=== PATIENT | male | born 1965 | race Caucasian/White ===

== ENCOUNTER 2023-11-17 11:24 | Inpatient (IN) ==
[2023-11-17] MEDS ORDERED: XYLOCAINE 2 % (PLAIN) ONE (14:28)
[2023-11-17] MEDS ORDERED: KETAMINE HCL ONE (14:28)
[2023-11-17] MEDS ORDERED: VENTOLIN or PROAIR HFA IN SCH (15:15)
[2023-11-17] MEDS: LR 1,000 ML IV 1,000 ML IV SCH (15:44)
[2023-11-17] MEDS: LOVENOX INJ 80 MG SYR SC SCH (15:44)
[2023-11-17 15:47] LABS: BASOPHILS # (AUTO) 0.1 X10^3/uL (0.0-0.1); EOSINOPHILS # (AUTO) 0.1 x10^3/uL (0.0-0.2); EOSINOPHILS % (AUTO) 1.5 % (0.9-2.9); HEMATOCRIT 41.1 % (42.0-54.0); HEMOGLOBIN 13.7 g/dL (13.5-18.0); LYMPHOCYTES # (AUTO) 4.7 X10^3/uL (1.3-2.9); LYMPHOCYTES % (AUTO) 48.1 % (21.0-51.0); MEAN CORPUSCULAR HEMOGLOBIN 31.5 pg (27.0-34.0); MEAN CORPUSCULAR HGB CONC 33.3 g/dL (33.0-35.0); MEAN CORPUSCULAR VOLUME 94.4 fL (80.0-100.0); MEAN PLATELET VOLUME 8.2 fL (7.4-11.0); MONOCYTES # (AUTO) 0.8 x10^3/uL (0.3-0.8); MONOCYTES % (AUTO) 8.4 % (0.0-13.0); PLATELET COUNT 267 X10^3/uL (150.0-450.0); RED BLOOD COUNT 4.35 X10^6/uL (4.7-6.0); RED CELL DISTRIBUTION WIDTH 14.2 % (11.6-16.5); WHITE BLOOD COUNT 9.7 X10^3/uL (3.6-10.0)
[2023-11-17] MEDS: CATAPRES TAB 0.1 MG PO ONE (17:02)
[2023-11-17 17:03] LABS: ALANINE AMINOTRANSFERASE 49 Units/L (12-78); ALBUMIN 3.7 g/dL (3.4-5.0); ALKALINE PHOSPHATASE 181 Units/L (46-116); ASPARTATE AMINO TRANSFERASE 29 Units/L (15-37); BLOOD UREA NITROGEN 12 mg/dL (7-18); CALCIUM 8.3 mg/dL (8.5-10.1); CARBON DIOXIDE 33.4 mmol/L (21-32); CHLORIDE 102 mmol/L (98-107); CREATININE 0.78 mg/dL (0.70-1.30); GLUCOSE 101 mg/dL (65-99); POTASSIUM 4.3 mmol/L (3.5-5.1); SODIUM 141 mmol/L (136-145); TOTAL PROTEIN 6.9 g/dL (6.4-8.2); eGFR NON BLACK RACES > 60 (>60)
--- NOTE | 2023-11-17 18:34 | DR.H&P ---
H&P History & Physical for Day of: H&P Date: 11/17/23 Chief Complaint Chief Complaint: Bilateral Lower extremity rest pain History of Present Illness History of Present Illness: This is a 58 year old male referred from Dr. Dubon for bilateral lower extremity rest pain with ankle brachial indices of 0.3 on the right and 0.5 on the left. He had cataract surgery earlier today in [place], [place] and was admitted here for further evaluation and treatment of his severe lower extremity ischemia . he says that the right leg hurts the worst. There is no tissue loss. He has a significant tobacco abuse history with over 1 pack per day. He has had recent cardiac catheterization showing no significant coronary artery stenosis. He does have COPD and hypertension.History of seizures . Past Medical History Past Medical History: COPD, Dyslipidemia, GERD, Hypertension and Seizures Past Surgical History Surgical History: Abdominal Surgery, Angioplasty/Stents and Tonsillectomy Family History Family Medical History: Hypertension Social History Does patient currently use any type of tobacco product: Yes Type of Tobacco Use: Cigarettes Alcohol Use: None Drug Use: None Medications Home Medications: Home Medications Medication Instructions Recorded Confirmed Type amlodipine 10 mg tablet 10 mg PO QDAY 06/28/23 11/17/23 History esomeprazole magnesium 40 mg 40 mg PO QDAY 06/28/23 11/17/23 History capsule,delayed release hydrocodone 5 mg-acetaminophen 325 1 tab PO Q8H PRN 06/28/23 11/17/23 History mg tablet lisinopril 40 mg tablet 40 mg PO QDAY 06/28/23 11/17/23 History metoprolol tartrate 100 mg tablet 100 mg PO BID 06/28/23 11/17/23 History phenytoin sodium extended 100 mg 200 mg PO BID 06/28/23 11/17/23 History capsule pregabalin 150 mg capsule 150 mg PO BID 06/28/23 11/17/23 History simvastatin 10 mg tablet 10 mg PO HS 06/28/23 11/17/23 History albuterol sulfate 90 mcg/actuation 2 puff inhalation Q6H PRN wheezing 10/24/23 11/17/23 History aerosol inhaler amlodipine 5 mg tablet 5 mg PO DAILY 10/24/23 11/17/23 History fluticasone fur. 100 mcg-umeclid 1 ea inhalation QDAY 10/24/23 11/17/23 History 62.5 mcg-vilant 25 mcg inhalat.powder (Trelegy Ellipta) levalbuterol HCl 1.25 mg/3 mL 1.25 mg inhalation TID 10/24/23 11/17/23 History solution for nebulization trazodone 50 mg tablet 50 mg PO QPM PRN 10/24/23 11/17/23 History Allergies Allergies Allergy/AdvReac Type Severity Reaction Status Date / Time codeine AdvReac Verified 10/24/23 09:53 Penicillins AdvReac Verified 10/24/23 09:53 Labs 11/17/23 15:30 11/17/23 16:35 Labs: Laboratory WBC 9.7 X10^3/uL (3.6-10.0) 11/17/23 15:30 RBC 4.35 X10^6/uL (4.7-6.0) L 11/17/23 15:30 Hgb 13.7 g/dL (13.5-18.0) 11/17/23 15:30 Hct 41.1 % (42.0-54.0) L 11/17/23 15:30 MCV 94.4 fL (80.0-100.0) 11/17/23 15:30 MCH 31.5 pg (27.0-34.0) 11/17/23 15:30 MCHC 33.3 g/dL (33.0-35.0) 11/17/23 15:30 RDW 14.2 % (11.6-16.5) 11/17/23 15:30 Plt Count 267 X10^3/uL (150.0-450.0) 11/17/23 15:30 MPV 8.2 fL (7.4-11.0) 11/17/23 15:30 Neut % (Auto) 41.0 % (42.0-75.0) L 11/17/23 15:30 Lymph % (Auto) 48.1 % (21.0-51.0) 11/17/23 15:30 Young % (Auto) 8.4 % (0.0-13.0) 11/17/23 15:30 Eos % (Auto) 1.5 % (0.9-2.9) 11/17/23 15:30 Baso % (Auto) 1.0 % (0.2-1.0) 11/17/23 15:30 Neut # (Auto) 4.0 x10^3/uL (2.2-4.8) 11/17/23 15:30 Lymph # (Auto) 4.7 X10^3/uL (1.3-2.9) H 11/17/23 15:30 Young # (Auto) 0.8 x10^3/uL (0.3-0.8) 11/17/23 15:30 Eos # (Auto) 0.1 x10^3/uL (0.0-0.2) 11/17/23 15:30 Baso # (Auto) 0.1 X10^3/uL (0.0-0.1) 11/17/23 15:30 Absolute Nucleated RBC 0.0 /100WBC 11/17/23 15:30 Sodium 141 mmol/L (136-145) 11/17/23 16:35 Corrected Sodium TNP 11/17/23 16:35 Potassium 4.3 mmol/L (3.5-5.1) 11/17/23 16:35 Chloride 102 mmol/L (98-107) 11/17/23 16:35 Carbon Dioxide 33.4 mmol/L (21-32) H 11/17/23 16:35 BUN 12 mg/dL (7-18) 11/17/23 16:35 Creatinine 0.78 mg/dL (0.70-1.30) 11/17/23 16:35 Est GFR (MDRD) Af Amer > 60 (>60) 11/17/23 16:35 Est GFR (MDRD) Non-Af > 60 (>60) 11/17/23 16:35 Glucose 101 mg/dL (65-99) H 11/17/23 16:35 Calcium 8.3 mg/dL (8.5-10.1) L 11/17/23 16:35 Corrected Calcium TNP 11/17/23 16:35 Total Bilirubin 0.20 mg/dL (0.2-1.0) 11/17/23 16:35 AST 29 Units/L (15-37) 11/17/23 16:35 ALT 49 Units/L (12-78) 11/17/23 16:35 Alkaline Phosphatase 181 Units/L (46-116) H 11/17/23 16:35 Total Protein 6.9 g/dL (6.4-8.2) 11/17/23 16:35 Albumin 3.7 g/dL (3.4-5.0) 11/17/23 16:35 Globulin 3.2 g/dL (2.5-4.5) 11/17/23 16:35 Albumin/Globulin Ratio 1.2 Ratio (1.1-2.1) 11/17/23 16:35 Review of Systems Constitutional: See HPI Eyes: No Symptoms Reported ENT: No Symptoms Reported Respiratory: No Symptoms Reported Cardiovascular: Other (complaints of significant shortness of breath although this is most likely from COPD. he gives history of recent cardiac catheterization which showed no significant coronary artery stenosis ) Gastrointestinal: No Symptoms Reported Musculoskeletal: No Symptoms Reported Skin: No Symptoms Reported Neurological: No Symptoms Reported Physical Exam Vital Signs: Vital Signs Temperature 98.3 F Pulse Rate [Left Brachial] 60 Respiratory Rate 24 Blood Pressure [Left Arm] 190/91 Blood Pressure [Left Arm] 179/85 Blood Pressure [Left Arm] 184/78 O2 Sat by Pulse Oximetry 94 Oriented: Normal Eyes: Normal Ear: Normal Nose: Normal Throat: Normal Respiratory: Clear Throughout Cardiovascular: Normal and Other (palpable femoral pulses bilaterally, cool feet bilaterally with no palpable distal pulses either ankle. no tissue loss noted ) : Normal Auscultation: Bowel Sounds: Normal Palpation: Normal Tenderness: Normal Skin: Normal Musculoskeletal: Normal Psychiatric: Normal Mood Description: Calm Affect: Normal Speech Pattern: Clear and Appropriate Assessment/Plan (1) Atherosclerosis of [place] arteries of extremities with rest pain, right leg: Status: Acute Plan: admit, therapeutic Lovenox, obtain lab work and CT and of the aorta with bilateral runoff. (2) Atherosclerosis of [place] arteries of extremities with rest pain, left leg: Status: Acute Plan: As above (3) Tobacco abuse: Status: Acute Plan: nicotine patch (4) Seizures: Status: Acute Plan: continue his Dilantin (5) Hyperlipidemia: Status: Acute Plan: home medications Review H&P Reviewed: Yes Patient was examined?: Yes
[2023-11-17] MEDS: XOPENEX 1.25 MG/3 ML NEBULE NEB SCH (20:13)
[2023-11-17] MEDS: LYRICA CAP 150 mg PO SCH (20:59)
--- NOTE | 2023-11-17 20:59 | CT ---
EXAM: CTA AORTA WITH RUNOFF HISTORY: Bilateral lower extremity CRITICAL ISCHEMIA; COMPARISON: None available TECHNIQUE: CT angiography of the abdominal aorta with bilateral lower extremity runoff with intravenous contrast . Three-dimensional reconstructions and/or MIPS images were performed and reviewed. FINDINGS: CTA aorta: The lung bases are clear. No liver mass. Normal adrenal glands. The kidneys enhance nor gloria. The ureters taper normally. Spleen is normal in contour. Noninflamed pancreas. Normal stom ach. The bowel is nonobstructed. Colon diverticulosis. No sign of appendicitis. No pelvic free fluid. No free air. No suspicious adenopathy. The abdominal aorta tapers normally with advanced multifocal atherosclerotic plaque. Celiac and supe rior mesenteric arteries are patent. Renal arteries are patent. The BRIAN is patent. There is advanced multifocal plaque in the bilateral common iliac arteries as well as the bilateral i nternal and external iliac arteries. The left internal iliac artery is occluded. There is flow in t he bilateral common femoral arteries. CTA bilateral lower extremity runoff: The right superficial femoral artery is patent with multifocal advanced atherosclerotic plaque resulting in multifocal moderate to severe stenosis along the length of the vessel. The popliteal artery is patent. There is flow in the right anterior tibial branch an d right dorsalis pedis. There is flow in the right posterior tibial and peroneal branches which is w eak. Flow is no longer visible in the right posterior tibial artery at the level of the distal tibia just above the ankle. The left superficial femoral artery is occluded along its length. There is reconstitution torsion of flow at the popliteal artery due to profunda branch collaterals. The popliteal artery demonstrates weak flow into the calf trifurcation. Only trickle flow is visible in the left calf trifurcation to the level of the ankle. Trickle flow is visible in the left dorsalis pedis and posterior tibial kenny cornelio at the foot. IMPRESSION: CTA aorta: The left internal iliac artery is occluded. CTA bilateral lower extremity runoff: The left superficial femoral artery is occluded along its length with reconstitution of flow at the l evel of the popliteal artery with week flow into the left calf trifurcation to the ankle. Extensive multifocal moderate to severe atherosclerotic disease involving the entirety of the right S FA. The right posterior tibial artery demonstrates no flow from just above the ankle. Dose reduction techniques including automated exposure control (AEC) and adjustment of mA and kv were utilized. THIS IS AN ELECTRONICALLY VERIFIED FINAL REPORT 11/17/2023 8:55 PM - Electronically signed by Charles Smith MD
[2023-11-17] MEDS: DILANTIN CAP 100 MG EXT REL PO SCH (21:00)
[2023-11-17] MEDS: DESYREL PO SCH (21:00)
[2023-11-17] MEDS: LOPRESSOR TAB 50 MG PO SCH (21:00)
[2023-11-17] MEDS: ZOCOR TAB 10 MG PO SCH (21:00)
[2023-11-18] MEDS: PERCOCET TAB 5/325 MG PO PRN (04:45)
[2023-11-18] MEDS: NORVASC TAB 10 MG PO SCH (09:10)
[2023-11-18] MEDS: PROTONIX TAB 40 MG PO SCH (09:10)
[2023-11-18] MEDS: ZESTRIL TAB 40 MG PO SCH (09:10)
[2023-11-18] MEDS: NICOTINE PATCH TD SCH (09:11)
[2023-11-18] MEDS: CHECK PATCH XX SCH (09:11)
[2023-11-18] MEDS: OMNIPAQUE 350 mg/mL 50 mL BTL 50 ML ONE (09:32)
[2023-11-18] MEDS: OMNIPAQUE 350 mg/mL 100 mL BTL 100 ML ONE (09:32)
[2023-11-18] MEDS: NS 500 ML IV 500 ML IV ONE (09:32)
--- NOTE | 2023-11-18 13:39 | NOTE.SOAP ---
Soap Note Note for Day of Date of Exam: 11/18/23 Subjective Data Subjective Data: HD # 1 after admission for severe b/l LE rest pain. Histroy of COPD. Has had recent cardiac cath which the patient describes as showing no significant disease. Long and significant tobacco abuse history and has diagnosis of COPD. Had CTA perdformed yesterday. Objective Data Temperature: 97.4 F Pulse Rate: 18 Respiratory Rate: 18 Blood Pressure: 160/69 O2 Sat by Pulse Oximetry: 97 Objective Data: Both feet cool, CTA shows long segrment occlusion of the left SFA with diffuse runoff disease, multifocal and severe disease of the right SFA also with diffuse runoff disease. Assessment Assessment: Severe limb threatening ischemia both legs, history of recent cardia catherization Plan Plan: Therapuetic Lovenox, obtain records of recent cardiac catherization. Plan arterial intervention of legs next week.
[2023-11-19] MEDS: CHLORTHALIDONE PO SCH (09:31)
--- NOTE | 2023-11-19 12:51 | RAD ---
EXAM: CHEST, 1 VIEW HISTORY: cough; COMPARISON: None available. FINDINGS: The trachea is midline. The cardiac silhouette is unremarkable. Chronic interstitial lung changes a re observed without focal infiltrate or effusion.. The bony thorax is unremarkable. IMPRESSION: No acute cardiopulmonary disease. THIS IS AN ELECTRONICALLY VERIFIED FINAL REPORT 11/19/2023 12:48 PM - Electronically signed by Chuck Atkinson MD
[2023-11-19] MEDS: MILK OF MAGNESIA PO SCH (13:38)
[2023-11-19] MEDS: CATAPRES TAB 0.1 MG PO ONE (13:38)
--- NOTE | 2023-11-19 15:59 | NOTE.SOAP ---
Soap Note Note for Day of Date of Exam: 11/19/23 Subjective Data Subjective Data: Still with b/l LE rest Pain of LE , no tissue loss. Reported to be hypertensive Objective Data Temperature: 97.1 F Pulse Rate: 63 Respiratory Rate: 22 Blood Pressure: 216/90 O2 Sat by Pulse Oximetry: 98 Objective Data: No change is PE . Assessment Assessment: Critical b/lLE ischemia , hypertension, COPD Plan Plan: Continue LOvenox , internal medicine consult to bettercontrol COPD and hypertenison. Initial list of home medications not complete and now started on all antihypertensives.
[2023-11-19] MEDS: APRESOLINE INJ 20 MG VIAL IVP ONE (16:42)
[2023-11-19] MEDS: VISTARIL PO PRN (18:33)
[2023-11-20 06:35] LABS: BASOPHILS # (AUTO) 0.1 X10^3/uL (0.0-0.1); BASOPHILS % (AUTO) 1.2 % (0.2-1.0); EOSINOPHILS # (AUTO) 0.3 x10^3/uL (0.0-0.2); EOSINOPHILS % (AUTO) 3.5 % (0.9-2.9); HEMATOCRIT 38.1 % (42.0-54.0); HEMOGLOBIN 12.7 g/dL (13.5-18.0); LYMPHOCYTES # (AUTO) 3.8 X10^3/uL (1.3-2.9); LYMPHOCYTES % (AUTO) 42.8 % (21.0-51.0); MEAN CORPUSCULAR HEMOGLOBIN 31.5 pg (27.0-34.0); MEAN CORPUSCULAR HGB CONC 33.4 g/dL (33.0-35.0); MEAN PLATELET VOLUME 8.5 fL (7.4-11.0); MONOCYTES # (AUTO) 0.9 x10^3/uL (0.3-0.8); MONOCYTES % (AUTO) 9.8 % (0.0-13.0); NEUTROPHILS # (AUTO) 3.8 x10^3/uL (2.2-4.8); NEUTROPHILS % (AUTO) 42.7 % (42.0-75.0); PLATELET COUNT 236 X10^3/uL (150.0-450.0); RED BLOOD COUNT 4.05 X10^6/uL (4.7-6.0); RED CELL DISTRIBUTION WIDTH 14.1 % (11.6-16.5); WHITE BLOOD COUNT 8.9 X10^3/uL (3.6-10.0)
[2023-11-20 06:54] LABS: ALANINE AMINOTRANSFERASE 40 Units/L (12-78); ALBUMIN 3.4 g/dL (3.4-5.0); ALKALINE PHOSPHATASE 149 Units/L (46-116); ASPARTATE AMINO TRANSFERASE 21 Units/L (15-37); BLOOD UREA NITROGEN 12 mg/dL (7-18); CALCIUM 8.7 mg/dL (8.5-10.1); CARBON DIOXIDE 31.5 mmol/L (21-32); CHLORIDE 102 mmol/L (98-107); CREATININE 0.78 mg/dL (0.70-1.30); GLUCOSE 107 mg/dL (65-99); POTASSIUM 3.4 mmol/L (3.5-5.1); SODIUM 140 mmol/L (136-145); TOTAL PROTEIN 6.4 g/dL (6.4-8.2); eGFR NON BLACK RACES > 60 (>60)
--- NOTE | 2023-11-20 06:57 | RAD ---
EXAM:KUBHISTORY:PainCOMPARISON: .br.br.br.br nonobstructive. There is no definite mass, visceral enlargement, ascites or abnormal calcification.IMPRESSION:No acute or significant findings.THIS IS AN ELECTRONICALLY VERIFIED FINAL REPORT11/20/2023 6:54 AM - Electronically signed by Dale Sargent MD
[2023-11-20] MEDS ORDERED: CONSULT PHARMACY - POTASSIUM & MAGNESIUM XX SCH (14:00)
[2023-11-20] MEDS: LR 1,000 ML IV 1,000 ML IV SCH (14:05)
[2023-11-20] MEDS: K-DUR TAB 20 MEQ PO SCH (14:41)
[2023-11-20] MEDS: MAG-OX TAB PO SCH (15:07)
--- NOTE | 2023-11-20 23:59 | NOTE.SOAP ---
Soap Note Note for Day of Date of Exam: 11/20/23 Subjective Data Subjective Data: Persistent rest pain both legs . BP under better control Still awaiting documentation of last cardiac catherization . CTA showed significant SFA disease, Right pain hurts the worse. COPD improved Objective Data Temperature: 98.3 F Pulse Rate: 90 Respiratory Rate: 16 Blood Pressure: 178/76 O2 Sat by Pulse Oximetry: 96 Objective Data: feet cool .no tissue loss, lungs are clear Assessment Assessment: B/L critical ischemia of LE Plan Plan: Plan arterial intervention 11/22/2023
[2023-11-21] MEDS: APRESOLINE TAB 10 MG PO SCH (18:33)
--- NOTE | 2023-11-21 23:51 | NOTE.SOAP ---
Soap Note Note for Day of Date of Exam: 11/21/23 Subjective Data Subjective Data: Rest pain both legs, right hurts the worst. Objective Data Pulse Rate: 70 O2 Sat by Pulse Oximetry: 95 Objective Data: Cool LE b/l. Assessment Assessment: critical ischema b/l Plan Plan: to OR in AM , revascularization right leg
[2023-11-22] MEDS: HIBICLENS WASH EXT ONE (04:58)
[2023-11-22 05:04] LABS: BASOPHILS # (AUTO) 0.1 X10^3/uL (0.0-0.1); BASOPHILS % (AUTO) 0.9 % (0.2-1.0); EOSINOPHILS # (AUTO) 0.3 x10^3/uL (0.0-0.2); EOSINOPHILS % (AUTO) 3.5 % (0.9-2.9); HEMATOCRIT 38.8 % (42.0-54.0); LYMPHOCYTES # (AUTO) 3.5 X10^3/uL (1.3-2.9); LYMPHOCYTES % (AUTO) 45.4 % (21.0-51.0); MEAN CORPUSCULAR HEMOGLOBIN 31.6 pg (27.0-34.0); MEAN CORPUSCULAR HGB CONC 33.5 g/dL (33.0-35.0); MEAN CORPUSCULAR VOLUME 94.3 fL (80.0-100.0); MONOCYTES # (AUTO) 0.7 x10^3/uL (0.3-0.8); MONOCYTES % (AUTO) 9.4 % (0.0-13.0); NEUTROPHILS # (AUTO) 3.2 x10^3/uL (2.2-4.8); NEUTROPHILS % (AUTO) 40.8 % (42.0-75.0); PLATELET COUNT 255 X10^3/uL (150.0-450.0); RED BLOOD COUNT 4.12 X10^6/uL (4.7-6.0); RED CELL DISTRIBUTION WIDTH 13.7 % (11.6-16.5); WHITE BLOOD COUNT 7.8 X10^3/uL (3.6-10.0)
[2023-11-22 05:16] LABS: ALANINE AMINOTRANSFERASE 70 Units/L (12-78); ALBUMIN 3.3 g/dL (3.4-5.0); ALKALINE PHOSPHATASE 161 Units/L (46-116); ASPARTATE AMINO TRANSFERASE 43 Units/L (15-37); BLOOD UREA NITROGEN 13 mg/dL (7-18); CALCIUM 8.8 mg/dL (8.5-10.1); CHLORIDE 101 mmol/L (98-107); COR CA(FOR HYPOALB) 9.4 mg/dL (8.5-10.1); CREATININE 0.81 mg/dL (0.70-1.30); GLUCOSE 95 mg/dL (65-99); MAGNESIUM 1.8 mg/dL (2.0-2.9); POTASSIUM 3.9 mmol/L (3.5-5.1); SODIUM 138 mmol/L (136-145); TOTAL PROTEIN 6.6 g/dL (6.4-8.2); eGFR NON BLACK RACES > 60 (>60)
[2023-11-22] MEDS ORDERED: XYLOCAINE 2 % (PLAIN) ONE (07:00)
[2023-11-22] MEDS ORDERED: KETAMINE HCL ONE (07:00)
[2023-11-22] MEDS ORDERED: CONSULT PHARMACY - POTASSIUM & MAGNESIUM XX SCH (09:00)
[2023-11-22] MEDS: MAGNESIUM SULFATE 1 GRAM/100 mL PREMIX 1 G/100 ML BAG IV SCH (10:24)
[2023-11-22] MEDS: LR 1,000 ML IV 1,000 ML IV ONE (11:32)
[2023-11-22] MEDS: DUONEB 0.5 MG/3 MG (3 mL) NEB ONE (11:47)
[2023-11-22] MEDS: ANCEF VIAL 1 GRAM ONE (12:02)
[2023-11-22] MEDS: NS 100 ML IV 100 ML ONE (12:02)
[2023-11-22] MEDS: VERSED ONE (12:10)
[2023-11-22] MEDS: OFIRMEV IV 1000 MG VIAL 1,000 MG/100 ML VIAL IV ONE (12:10)
[2023-11-22] MEDS: PRECEDEX INJ VIAL ONE (12:10)
[2023-11-22] MEDS: DIPRIVAN VIAL 20 ML ONE ×2 (12:10→13:09)
[2023-11-22] MEDS: FENTANYL VIAL INJ 100 mcg ONE (12:10)
[2023-11-22] MEDS: ZOFRAN INJ 4 MG VIAL ONE (12:11)
[2023-11-22] MEDS: DECADRON INJ ONE (12:11)
[2023-11-22] MEDS: PEPCID 20 MG VIAL ONE (12:11)
[2023-11-22] MEDS: HEPARIN SODIUM IN D5W 75,000 UNITS/1,500 ML BAG ONE (12:32)
[2023-11-22] MEDS: VISIPAQUE 100 ML ONE (12:32)
[2023-11-22] MEDS: VISIPAQUE 50 ML ONE (12:32)
[2023-11-22] MEDS: MARCAINE 0.5% ONE (12:32)
[2023-11-22] MEDS: HEPARIN SODIUM INJ 5000 UNITS ONE (12:34)
[2023-11-22] MEDS: EPHEDRINE SULFATE INJ ONE (12:40)
[2023-11-22] MEDS: NS 500 ML IV 500 ML IV ONE (12:50)
[2023-11-22] MEDS: PROTAMINE SULFATE 50 MG VIAL ONE (13:14)
--- NOTE | 2023-11-22 13:30 | OR.IMMED ---
IMMEDIATE POST-OP NOTE Immediate Post-Op Note Date of surgery/procedure: 11/22/23 Pre-Op Diagnosis: Critical ischemia your right leg with diffuse but severe disease right SFA Post-Op Diagnosis: same Procedure: diagnostic aortogram, diagnostic arteriogram right leg, artherectomy and Drug coated balloon angioplasty of the mid and distal right superficial femoral artery and the right superficial femoral artery take off Description of Procedure: dictated Surgeon/Home Care Chaplain: Lianet Findings: diffused disease of the mid and distal right superficial femoral artery with 3 areas of near complete occlusion, severe disease take off of the right superficial from artery ,3 vessel runoff right leg Estimated Blood Loss: < 50 cc Complications: none Progress Notes: to floor , continue all meds including therpeutic Lovenox, Plan left leg arterial intervention 11/23
[2023-11-23 07:10] LABS: BASOPHILS # (AUTO) 0.2 X10^3/uL (0.0-0.1); BASOPHILS % (AUTO) 1.4 % (0.2-1.0); EOSINOPHILS # (AUTO) 0.2 x10^3/uL (0.0-0.2); EOSINOPHILS % (AUTO) 1.6 % (0.9-2.9); HEMATOCRIT 37.4 % (42.0-54.0); HEMOGLOBIN 12.6 g/dL (13.5-18.0); LYMPHOCYTES # (AUTO) 4.6 X10^3/uL (1.3-2.9); LYMPHOCYTES % (AUTO) 36.3 % (21.0-51.0); MEAN CORPUSCULAR HEMOGLOBIN 31.5 pg (27.0-34.0); MEAN CORPUSCULAR HGB CONC 33.7 g/dL (33.0-35.0); MEAN CORPUSCULAR VOLUME 93.5 fL (80.0-100.0); MEAN PLATELET VOLUME 8.2 fL (7.4-11.0); MONOCYTES # (AUTO) 1.1 x10^3/uL (0.3-0.8); MONOCYTES % (AUTO) 8.6 % (0.0-13.0); NEUTROPHILS # (AUTO) 6.6 x10^3/uL (2.2-4.8); NEUTROPHILS % (AUTO) 52.1 % (42.0-75.0); PLATELET COUNT 245 X10^3/uL (150.0-450.0); RED BLOOD COUNT 3.99 X10^6/uL (4.7-6.0); RED CELL DISTRIBUTION WIDTH 13.9 % (11.6-16.5); WHITE BLOOD COUNT 12.7 X10^3/uL (3.6-10.0)
[2023-11-23 07:30] LABS: ALANINE AMINOTRANSFERASE 97 Units/L (12-78); ALBUMIN 3.5 g/dL (3.4-5.0); ALKALINE PHOSPHATASE 160 Units/L (46-116); ASPARTATE AMINO TRANSFERASE 77 Units/L (15-37); BLOOD UREA NITROGEN 12 mg/dL (7-18); CALCIUM 8.9 mg/dL (8.5-10.1); CARBON DIOXIDE 32.1 mmol/L (21-32); CHLORIDE 98 mmol/L (98-107); CREATININE 0.81 mg/dL (0.70-1.30); GLUCOSE 106 mg/dL (65-99); MAGNESIUM 1.9 mg/dL (2.0-2.9); POTASSIUM 4.2 mmol/L (3.5-5.1); SODIUM 136 mmol/L (136-145); TOTAL PROTEIN 6.6 g/dL (6.4-8.2); eGFR NON BLACK RACES > 60 (>60)
[2023-11-23] MEDS ORDERED: CONSULT PHARMACY - POTASSIUM & MAGNESIUM XX SCH (08:00)
[2023-11-23] MEDS: MAG-OX TAB PO SCH (11:22)
--- NOTE | 2023-11-23 15:43 | DR.OPNOTE ---
OP NOTE Pre-Op Diagnosis: Critical ischemia right leg Post-Op Diagnosis: same Procedure Date Date Of Procedure: 11/22/23 Procedure: PROCEDURE: DIAGNOSTIC AORTOGRAM, DIAGNOSTIC ARTERIOGRAM RIGHT LEG ,ATHERECTOMY AND DRUG COATED BALLON ANGIOPLASTY RIGHT SUPERFICIAL FEMORAL ARTERY NARRATIVE : The patient was taken to the operative suite and placed in the supine position. The left groin and entire right leg were prepped and draped in sterile fashion. The patient was given intravenous sedation supervised by myself. Time out for the procedure obtained. Ultrasound used to identify the left femoral artery and the skin overlying it infiltrated with 0.5% Marcaine. Ultrasound then used to guide puncture of the left femoral artery and a 0.012 inch guide wire was placed. Incision made over the guide wire at the skin edge with a # 11 knife blade and a micro sheath placed over the guide wire into the left femoral artery The small guidewire exchanged for a 0.035 inch Advantage glide wire and the micro sheath exchanged for a 5 Fr vascular sheath. Patient given 5000 units of intravenous heparin. Omni catheter was placed over the guide wire into the aorta and diagnostic aortogram carried out with the power injector showing normal aorta and iliac arteries . Omni catheter was used to steer the guide wire down the right common iliac artery to the distal right external iliac artery . Omni catheter was exchanged for a Bryan catheter and sequential arteriograms carried out of the right lower extremity showing diffuse disease of the right superficial femoralartery with 3 areas of short segment near complete occlusion. There was three vessel rumoff to the ankle. The 5 Fr sheath in the left groin then exchanged for a 7 Fr Catpult destination sheath which was parked in the distal right external iliac artery. Bryan catheter and the guide wire were used to traverse the arteries of the right leg ultimately ending in the right posterior tibial artery . This was selective catheterization. 0.035 inch wire removed and exchanged for a 0.014 inch wire. Over this wire we placed the Jet Stream atherectomy device and performed atherectomy of the entire right uperficial femoral artery . At this point we performed drug coated balloon dilatation of the the right superficial femoral artery using a [place] drug coated balloon measuring 5mmx 150 mm and a [place] 6mmx 60 mm drug coated balloon, inflating each for three minutes . At the completion of this a follow up arteriogram showed excellent results . All wires and devices removed. The 7 Fr Catapult sheath was pulled back into the aorta and a 0.035 inch wire placed. The destination sheath exchanged for an Angioseal device used to close the puncture of the left femoral artery. .Dressing applied to the left groin. The patient taken to same day surgery in good condition. Type of Anesthesia: Local (0.5% Marcaine) Anesthesia Comment: plus MAC Findings: Diffuse disease right superficial femoral artery with 3 areas on short segment near complete occlusion, 3 vessel runoff right leg Type of Fluids Used:: Lactated Ringers Total Amount of Fluid Infused:: 450 cc Urine output: 300cc EBL: 50 cc Complications:: none Needle/Sponge Count:: correct Disposition/Condition: Pt. tolerated procedure without difficulty. Taken to floor in stable condition.
[2023-11-24 07:05] LABS: BASOPHILS # (AUTO) 0.1 X10^3/uL (0.0-0.1); BASOPHILS % (AUTO) 0.9 % (0.2-1.0); EOSINOPHILS # (AUTO) 0.3 x10^3/uL (0.0-0.2); EOSINOPHILS % (AUTO) 3.2 % (0.9-2.9); HEMATOCRIT 38.6 % (42.0-54.0); HEMOGLOBIN 12.8 g/dL (13.5-18.0); LYMPHOCYTES # (AUTO) 3.8 X10^3/uL (1.3-2.9); LYMPHOCYTES % (AUTO) 45.1 % (21.0-51.0); MEAN CORPUSCULAR HEMOGLOBIN 31.3 pg (27.0-34.0); MEAN CORPUSCULAR HGB CONC 33.2 g/dL (33.0-35.0); MEAN CORPUSCULAR VOLUME 94.3 fL (80.0-100.0); MEAN PLATELET VOLUME 8.7 fL (7.4-11.0); MONOCYTES # (AUTO) 0.9 x10^3/uL (0.3-0.8); NEUTROPHILS # (AUTO) 3.4 x10^3/uL (2.2-4.8); NEUTROPHILS % (AUTO) 39.8 % (42.0-75.0); PLATELET COUNT 234 X10^3/uL (150.0-450.0); RED CELL DISTRIBUTION WIDTH 13.9 % (11.6-16.5); WHITE BLOOD COUNT 8.5 X10^3/uL (3.6-10.0)
[2023-11-24 07:14] LABS: ALANINE AMINOTRANSFERASE 109 Units/L (12-78); ALBUMIN 3.7 g/dL (3.4-5.0); ALKALINE PHOSPHATASE 171 Units/L (46-116); ASPARTATE AMINO TRANSFERASE 73 Units/L (15-37); BLOOD UREA NITROGEN 13 mg/dL (7-18); CARBON DIOXIDE 28.8 mmol/L (21-32); CHLORIDE 102 mmol/L (98-107); CREATININE 0.78 mg/dL (0.70-1.30); GLUCOSE 97 mg/dL (65-99); MAGNESIUM 2.1 mg/dL (2.0-2.9); POTASSIUM 4.2 mmol/L (3.5-5.1); SODIUM 138 mmol/L (136-145); TOTAL PROTEIN 6.8 g/dL (6.4-8.2); eGFR NON BLACK RACES > 60 (>60)
[2023-11-24] MEDS: LR 1,000 ML IV 1,000 ML IV ONE (08:49)
[2023-11-24] MEDS: ROBINUL ONE (09:20)
[2023-11-24] MEDS: ANCEF VIAL 1 GRAM ONE (09:20)
[2023-11-24] MEDS: NS 100 ML IV 100 ML ONE (09:20)
[2023-11-24] MEDS: FENTANYL VIAL INJ 100 mcg ONE (09:20)
[2023-11-24] MEDS: VERSED ONE (09:20)
[2023-11-24] MEDS: PRECEDEX INJ VIAL ONE (09:20)
[2023-11-24] MEDS: DIPRIVAN VIAL 40 ML ONE (09:20)
[2023-11-24] MEDS: VISIPAQUE 50 ML ONE (09:40)
[2023-11-24] MEDS: HEPARIN SODIUM IN D5W 75,000 UNITS/1,500 ML BAG ONE (09:40)
[2023-11-24] MEDS: HEPARIN SODIUM INJ 5000 UNITS ONE ×2 (09:40→10:40)
[2023-11-24] MEDS: VISIPAQUE 100 ML ONE (09:40)
[2023-11-24] MEDS: DIPRIVAN VIAL 20 ML ONE (11:03)
[2023-11-24] MEDS: PROTAMINE SULFATE 50 MG VIAL ONE (11:05)
--- NOTE | 2023-11-24 11:32 | OR.IMMED ---
IMMEDIATE POST-OP NOTE Immediate Post-Op Note Date of surgery/procedure: 11/24/23 Pre-Op Diagnosis: Critical iscehemia left leg Post-Op Diagnosis: same Procedure: diagnostic aortogram, arteriogram left leg ,access left posterior tibial artery with atherectomy and Drug coated stenting of the entire left superficial femoral artery, intravascular ultrasound of the left superficial femoral artery, left iliac artery and right iliac artery Description of Procedure: dictated Surgeon/Trimmer Sorter: cande Findings: completely occluded left superficial femoral artery with reconstitution of the popliteal artery, question of external iliac artery stenosis bilaterally Estimated Blood Loss: 150 cc Complications: none Progress Notes: return to the floor. Begin PO Xarelto and Asirin . Discontinue Lovenox. discharge home either today or tomorrow
[2023-11-24] MEDS: DILAUDID INJ IVP ONE (17:42)
--- NOTE | 2023-11-24 18:36 | NOTE.SOAP ---
Soap Note Note for Day of Date of Exam: 11/23/23 Subjective Data Subjective Data: S/p atherectomy and drug coated balloon angioplasty right superficial femoral artery sever disease yesterday. Right foot improved . Objective Data Temperature: 98.0 F Pulse Rate: 72 Respiratory Rate: 19 Blood Pressure: 159/74 O2 Sat by Pulse Oximetry: 98 Objective Data: Right leg doing well after arterial intervention yesterday. BP under better control. No SOB. Assessment Assessment: S/P arterial intervention right leg to restore flow Plan Plan: To OR tomorrow for arterial intervention left leg, CTA shows complete long segment occlusion of the left superificial femoral artery.
[2023-11-24] MEDS: XARELTO PO SCH (21:32)
[2023-11-25 05:32] LABS: BASOPHILS % (AUTO) 0.3 % (0.2-1.0); EOSINOPHILS # (AUTO) 0.2 x10^3/uL (0.0-0.2); EOSINOPHILS % (AUTO) 1.1 % (0.9-2.9); HEMATOCRIT 36.8 % (42.0-54.0); HEMOGLOBIN 12.3 g/dL (13.5-18.0); LYMPHOCYTES # (AUTO) 2.2 X10^3/uL (1.3-2.9); LYMPHOCYTES % (AUTO) 16.7 % (21.0-51.0); MEAN CORPUSCULAR HEMOGLOBIN 31.5 pg (27.0-34.0); MEAN CORPUSCULAR HGB CONC 33.5 g/dL (33.0-35.0); MEAN CORPUSCULAR VOLUME 93.9 fL (80.0-100.0); MEAN PLATELET VOLUME 8.1 fL (7.4-11.0); MONOCYTES # (AUTO) 1.4 x10^3/uL (0.3-0.8); MONOCYTES % (AUTO) 10.4 % (0.0-13.0); NEUTROPHILS # (AUTO) 9.6 x10^3/uL (2.2-4.8); NEUTROPHILS % (AUTO) 71.5 % (42.0-75.0); PLATELET COUNT 225 X10^3/uL (150.0-450.0); RED BLOOD COUNT 3.92 X10^6/uL (4.7-6.0); RED CELL DISTRIBUTION WIDTH 13.6 % (11.6-16.5); WHITE BLOOD COUNT 13.4 X10^3/uL (3.6-10.0)
[2023-11-25 05:55] LABS: ALANINE AMINOTRANSFERASE 87 Units/L (12-78); ALBUMIN 3.6 g/dL (3.4-5.0); ALKALINE PHOSPHATASE 174 Units/L (46-116); ASPARTATE AMINO TRANSFERASE 43 Units/L (15-37); BLOOD UREA NITROGEN 8 mg/dL (7-18); CALCIUM 8.7 mg/dL (8.5-10.1); CARBON DIOXIDE 27.7 mmol/L (21-32); CHLORIDE 94 mmol/L (98-107); COR NA(FOR HYPERGLY) 132 mmol/L (136-145); CREATININE 0.82 mg/dL (0.70-1.30); GLUCOSE 142 mg/dL (65-99); POTASSIUM 3.9 mmol/L (3.5-5.1); SODIUM 131 mmol/L (136-145); eGFR NON BLACK RACES > 60 (>60)
[2023-11-25] MEDS: ASPIRIN EC 81 MG PO SCH (08:05)
[2023-11-25] MEDS: MORPHINE SULFATE INJ 2 MG INJ IVP ONE (08:48)
[2023-11-25] MEDS: HIBICLENS WASH EXT ONE (10:03)
[2023-11-25] MEDS: DUONEB 0.5 MG/3 MG (3 mL) NEB ONE (10:03)
[2023-11-25 13:00] VITALS: TEMP 98.4
[2023-11-25 16:02] VITALS: BP 140/71; PULSE 78; RESP 18; O2SAT 99
--- NOTE | 2023-11-25 18:09 | W.DIS.FURT ---
Summary of Discharge Discharge Summary of Date Date of Exam: 11/25/23 Admission Date Date of Admission: 11/17/23 Admission Diagnosis Hospital Course: This is a 58 year old male with significant history tobacco abuse history who presented with severe rest pain of both lower extremities with ankle brachial index of 0.3 on the right and 0.5 on the left. Past medical history of COPD, seizures and hypertension. He recently had a cardiac catheterization showing no significant coronary artery stenosis. He was admitted and placed on therapeutic Lovenox and we controlled his pain with IV pain medication. CT angiogram showed diffuse disease and multiple areas of complete occlusion of the right superficial femoral artery with 3 vessel runoff and complete total occlusion of the left superficial femoral from its takeoff with reconstitution of the popliteal artery and good runoff. On the 21 of November he underwent arterial intervention of the right leg with atherectomy and drug coated balloon angioplasty of the right superficial artery. On November the underwent atherectomy and drug coated stenting of the entire left superficial femoral artery . He complains of pain probably from reperfusion but has excellent doppler signals at both ankles. He andrzej l be discharged home on his usual medications plus the Xarelto 2.5 milligrams BID and aspirin 81 mg daily , Percocet 5 milligram tablets 1 every 6 hours per pain in addition to usual home medications. Nicole there's lock I need to speak to a nurse taking care of Mr Johnson in 216 please aury cardona will follow with me in 2 weeks. He has history of seizures controlled with medication. Vital Signs: Vital Signs (72 hours) 11/24/23 18:36 11/22/23 19:27 11/22/23 20:09 Temperature 98.0 F 98.8 F Pulse Rate 72 60 Pulse Rate [Left Brachial] 81 Respiratory Rate 19 20 Blood Pressure 159/74 Blood Pressure [Right Arm] 133/65 O2 Sat by Pulse Oximetry 98 96 96 Oxygen Delivery Method Room Air Oxygen Flow Rate 11/22/23 23:58 11/22/23 19:00 11/23/23 04:00 Temperature 98.5 F 97.4 F L Pulse Rate Pulse Rate [Left Brachial] 69 63 Respiratory Rate 20 18 Blood Pressure Blood Pressure [Right Arm] 139/75 139/75 O2 Sat by Pulse Oximetry 97 97 Oxygen Delivery Method Room Air Room Air Room Air Oxygen Flow Rate 11/23/23 08:00 11/23/23 07:00 11/23/23 12:00 Temperature 98.5 F 97.6 F Pulse Rate Pulse Rate [Left Brachial] 68 70 Respiratory Rate 18 18 Blood Pressure Blood Pressure [Right Arm] 157/74 168/78 O2 Sat by Pulse Oximetry 95 94 L Oxygen Delivery Method Room Air Room Air Room Air Oxygen Flow Rate 11/23/23 16:00 11/23/23 21:36 11/23/23 19:00 Temperature 97.9 F Pulse Rate Pulse Rate [Left Brachial] 69 Respiratory Rate 18 20 Blood Pressure Blood Pressure [Right Arm] 139/65 O2 Sat by Pulse Oximetry 94 L Oxygen Delivery Method Room Air Room Air Oxygen Flow Rate 11/23/23 22:36 11/24/23 01:28 11/23/23 21:20 Temperature Pulse Rate 66 Pulse Rate [Left Brachial] Respiratory Rate 19 20 Blood Pressure Blood Pressure [Right Arm] O2 Sat by Pulse Oximetry 97 Oxygen Delivery Method Oxygen Flow Rate 11/23/23 20:00 11/24/23 00:00 11/24/23 04:00 Temperature 98.0 F 97.8 F 97.9 F Pulse Rate Pulse Rate [Left Brachial] 72 62 61 Respiratory Rate 19 21 20 Blood Pressure Blood Pressure [Right Arm] 159/74 143/71 146/76 O2 Sat by Pulse Oximetry 98 95 95 Oxygen Delivery Method Room Air Room Air Room Air Oxygen Flow Rate 11/24/23 02:28 11/24/23 05:21 11/24/23 08:00 Temperature 97.8 F Pulse Rate 72 Pulse Rate [Left Brachial] 65 Respiratory Rate 20 20 Blood Pressure Blood Pressure [Right Arm] 188/81 O2 Sat by Pulse Oximetry 98 96 Oxygen Delivery Method Room Air Oxygen Flow Rate 11/24/23 11:30 11/24/23 12:15 11/24/23 12:56 Temperature 97.5 F L 97.5 F L 97.5 F L Pulse Rate 60 60 63 Pulse Rate [Left Brachial] Respiratory Rate 18 18 18 Blood Pressure 139/57 145/65 168/78 Blood Pressure [Right Arm] O2 Sat by Pulse Oximetry Oxygen Delivery Method Oxygen Flow Rate 11/24/23 13:10 11/24/23 13:30 11/24/23 14:50 Temperature 97.5 F L 98.6 F Pulse Rate 61 71 64 Pulse Rate [Left Brachial] Respiratory Rate 19 18 20 Blood Pressure 177/82 174/87 Blood Pressure [Right Arm] O2 Sat by Pulse Oximetry Oxygen Delivery Method Oxygen Flow Rate 11/24/23 15:46 11/24/23 17:42 11/24/23 16:25 Temperature 97.5 F L Pulse Rate Pulse Rate [Left Brachial] 63 Respiratory Rate 20 20 18 Blood Pressure Blood Pressure [Right Arm] 183/81 O2 Sat by Pulse Oximetry 95 Oxygen Delivery Method Room Air Oxygen Flow Rate 11/24/23 16:46 11/24/23 18:12 11/24/23 11:25 Temperature Pulse Rate Pulse Rate [Left Brachial] 59 L Respiratory Rate 20 20 18 Blood Pressure Blood Pressure [Right Arm] 139/68 O2 Sat by Pulse Oximetry 89 L Oxygen Delivery Method Room Air Oxygen Flow Rate 11/24/23 11:40 11/24/23 11:55 11/24/23 12:10 Temperature 97.5 F L 97.5 F L Pulse Rate Pulse Rate [Left Brachial] 59 L 60 60 Respiratory Rate 18 19 18 Blood Pressure Blood Pressure [Right Arm] 137/66 137/66 145/65 O2 Sat by Pulse Oximetry 89 L 95 95 Oxygen Delivery Method Room Air Nasal Cannula Nasal Cannula Oxygen Flow Rate 3 3 11/24/23 12:25 11/24/23 13:25 11/24/23 14:25 Temperature 97.5 F L 97.3 F L 98.6 F Pulse Rate Pulse Rate [Left Brachial] 63 71 64 Respiratory Rate 18 18 20 Blood Pressure Blood Pressure [Right Arm] 168/78 177/82 174/87 O2 Sat by Pulse Oximetry 98 93 L 93 L Oxygen Delivery Method Nasal Cannula Nasal Cannula Nasal Cannula Oxygen Flow Rate 3 3 3 11/24/23 15:25 11/24/23 19:56 11/24/23 21:33 Temperature 97.7 F 98.7 F Pulse Rate Pulse Rate [Left Brachial] 65 75 Respiratory Rate 18 20 20 Blood Pressure Blood Pressure [Right Arm] 180/84 179/76 O2 Sat by Pulse Oximetry 98 94 L Oxygen Delivery Method Nasal Cannula Room Air Oxygen Flow Rate 3 11/24/23 21:30 11/24/23 23:44 11/24/23 19:00 Temperature 98.4 F Pulse Rate 73 Pulse Rate [Left Brachial] 77 Respiratory Rate 21 Blood Pressure Blood Pressure [Right Arm] 177/74 O2 Sat by Pulse Oximetry 95 96 Oxygen Delivery Method Room Air Room Air Oxygen Flow Rate 11/24/23 22:33 11/25/23 04:00 11/25/23 04:23 Temperature 99.6 F Pulse Rate Pulse Rate [Left Brachial] 83 Respiratory Rate 20 19 18 Blood Pressure Blood Pressure [Right Arm] 174/72 O2 Sat by Pulse Oximetry 94 L Oxygen Delivery Method Room Air Oxygen Flow Rate 11/25/23 05:23 11/25/23 07:59 11/25/23 08:05 Temperature 98.1 F Pulse Rate Pulse Rate [Left Brachial] 86 Respiratory Rate 20 18 20 Blood Pressure Blood Pressure [Right Arm] 172/77 O2 Sat by Pulse Oximetry 95 Oxygen Delivery Method Room Air Oxygen Flow Rate 11/25/23 08:48 11/25/23 12:23 11/25/23 07:00 Temperature Pulse Rate Pulse Rate [Left Brachial] Respiratory Rate 20 20 Blood Pressure Blood Pressure [Right Arm] O2 Sat by Pulse Oximetry Oxygen Delivery Method Room Air Oxygen Flow Rate 11/25/23 09:04 11/25/23 09:18 11/25/23 12:00 Temperature 98.4 F Pulse Rate Pulse Rate [Left Brachial] 58 L Respiratory Rate 20 20 18 Blood Pressure Blood Pressure [Right Arm] 173/81 O2 Sat by Pulse Oximetry 97 Oxygen Delivery Method Room Air Oxygen Flow Rate 11/25/23 13:23 11/25/23 16:00 Temperature 98.4 F Pulse Rate Pulse Rate [Left Brachial] 78 Respiratory Rate 20 18 Blood Pressure Blood Pressure [Right Arm] 140/71 O2 Sat by Pulse Oximetry 99 Oxygen Delivery Method Room Air Oxygen Flow Rate Labs: Laboratory Last Values WBC 13.4 X10^3/uL (3.6-10.0) H 11/25/23 05:01 RBC 3.92 X10^6/uL (4.7-6.0) L 11/25/23 05:01 Hgb 12.3 g/dL (13.5-18.0) L 11/25/23 05:01 Hct 36.8 % (42.0-54.0) L 11/25/23 05:01 MCV 93.9 fL (80.0-100.0) 11/25/23 05:01 MCH 31.5 pg (27.0-34.0) 11/25/23 05:01 MCHC 33.5 g/dL (33.0-35.0) 11/25/23 05:01 RDW 13.6 % (11.6-16.5) 11/25/23 05:01 Plt Count 225 X10^3/uL (150.0-450.0) 11/25/23 05:01 MPV 8.1 fL (7.4-11.0) 11/25/23 05:01 Neut % (Auto) 71.5 % (42.0-75.0) 11/25/23 05:01 Lymph % (Auto) 16.7 % (21.0-51.0) L 11/25/23 05:01 [place] % (Auto) 10.4 % (0.0-13.0) 11/25/23 05:01 Eos % (Auto) 1.1 % (0.9-2.9) 11/25/23 05:01 Baso % (Auto) 0.3 % (0.2-1.0) 11/25/23 05:01 Neut # (Auto) 9.6 x10^3/uL (2.2-4.8) H 11/25/23 05:01 Lymph # (Auto) 2.2 X10^3/uL (1.3-2.9) 11/25/23 05:01 [place] # (Auto) 1.4 x10^3/uL (0.3-0.8) H 11/25/23 05:01 Eos # (Auto) 0.2 x10^3/uL (0.0-0.2) 11/25/23 05:01 Baso # (Auto) 0.0 X10^3/uL (0.0-0.1) 11/25/23 05:01 Absolute Nucleated RBC 0.1 /100WBC 11/25/23 05:01 Sodium 131 mmol/L (136-145) L 11/25/23 05:01 Corrected Sodium 132 mmol/L (136-145) L 11/25/23 05:01 Potassium 3.9 mmol/L (3.5-5.1) 11/25/23 05:01 Chloride 94 mmol/L (98-107) L 11/25/23 05:01 Carbon Dioxide 27.7 mmol/L (21-32) 11/25/23 05:01 BUN 8 mg/dL (7-18) 11/25/23 05:01 Creatinine 0.82 mg/dL (0.70-1.30) 11/25/23 05:01 Est GFR (MDRD) Af Amer > 60 (>60) 11/25/23 05:01 Est GFR (MDRD) Non-Af > 60 (>60) 11/25/23 05:01 Glucose 142 mg/dL (65-99) H 11/25/23 05:01 Calcium 8.7 mg/dL (8.5-10.1) 11/25/23 05:01 Corrected Calcium TNP 11/25/23 05:01 Magnesium 2.1 mg/dL (2.0-2.9) 11/24/23 06:13 Total Bilirubin 0.30 mg/dL (0.2-1.0) 11/25/23 05:01 AST 43 Units/L (15-37) H 11/25/23 05:01 ALT 87 Units/L (12-78) H 11/25/23 05:01 Alkaline Phosphatase 174 Units/L (46-116) H 11/25/23 05:01 Total Protein 7.0 g/dL (6.4-8.2) 11/25/23 05:01 Albumin 3.6 g/dL (3.4-5.0) 11/25/23 05:01 Globulin 3.4 g/dL (2.5-4.5) 11/25/23 05:01 Albumin/Globulin Ratio 1.1 Ratio (1.1-2.1) 11/25/23 05:01 Phenytoin 12.1 ug/mL (10-20) 11/18/23 05:25 Reason For Visit: BILATERAL CRITICAL ISCHEMIA WORSE ON RIGHT Discharge Date Discharge Date: 11/25/23 Discharge Diagnosis All Active Problems (Updated 11/17/23 @ 18:31 by Fady Martini) Hyperlipidemia (Acute) Seizures (Acute) Tobacco abuse (Acute) Atherosclerosis of [place] arteries of extremities with rest pain, left leg (Acute) Atherosclerosis of [place] arteries of extremities with rest pain, right leg (Acute) Contusion of left ankle, initial encounter (Acute) Left ankle sprain (Acute) Left foot pain (Acute) DDD (degenerative disc disease), lumbar (Acute) Lumbar foraminal stenosis (Acute) Abdominal pain (Acute) Contusion of ankle, right (Acute) Ankle pain, right (Acute) Plan of Treatment: Continue with present treatment and follow up plan. Pt is to keep follow up appointment as instructed and take medications as ordered. Discharge Medications Discharge Medications: codeine Adverse Reaction (Verified 10/24/23 09:53) Penicillins Adverse Reaction (Verified 10/24/23 09:53) home medications aspirin 81 mg po daily Xarelto 2.5 mg , 1 po q 6 hr PRN pain Percocet 5 mg , 1 po BID Discharge Disposition Assessment: see hospital course Discharge Plan Discharge Plan Hospital Course: This is a 58 year old male with significant history tobacco abuse history who presented with severe rest pain of both lower extremities with ankle brachial index of 0.3 on the right and 0.5 on the left. Past medical history of COPD, seizures and hypertension. He recently had a cardiac catheterization showing no significant coronary artery stenosis. He was admitted and placed on therapeutic Lovenox and we controlled his pain with IV pain medication. CT angiogram showed diffuse disease and multiple areas of complete occlusion of the right superficial femoral artery with 3 vessel runoff and complete total occlusion of the left superficial femoral from its takeoff with reconstitution of the popliteal artery and good runoff. On the 21 of November he underwent arterial intervention of the right leg with atherectomy and drug coated balloon angioplasty of the right superficial artery. On November the the underwent atherectomy and drug coated stenting of the entire left superficial femoral artery . He complains of pain probably from reperfusion but has excellent doppler signals at both ankles. He andrzej l be discharged home on his usual medications plus the Xarelto 2.5 milligrams BID and aspirin 81 mg daily , Percocet 5 milligram tablets 1 every 6 hours per pain in addition to usual home medications. Nicole there's lock I need to speak to a nurse taking care of Mr Johnson in 216 please okay e will follow with me in 2 weeks. He has history of seizures controlled with medication. Patient Disposition: HOME, SELF-CARE Condition: Stable Health Concerns: Post Hospitalization: new medications and changes needed to prevent readmission or further decline. Pt educated and given instructions on all concerns. Care Plan Goals: Problem: Pain/Alteration in Comfort Goal: Improve/ Resolve Pain; Achieve Pain Tolerance Instructions: Take pain medications as prescribed. Contact your primary care provider if your pain is unrelieved or worsens. Follow up with primary care provider as directed. Plan of Treatment: Continue with present treatment and follow up plan. Pt is to keep follow up appointment as instructed and take medications as ordered. Assessment: see hospital course Prescription drug monitoring program results: PDMP reviewed with concerns identified Prescriptions: New aspirin 81 mg tablet,chewable 81 mg PO QDAY Qty: 120 0RF Xarelto 2.5 mg tablet 2.5 mg PO BID Qty: 180 0RF oxycodone-acetaminophen [Percocet] 5-325 mg tablet 1 tab PO Q6H MDD 4 PRNQty: 30 0RF Continued metoprolol tartrate 100 mg tablet 100 mg PO BID hydrocodone-acetaminophen 5-325 mg tablet 1 tab PO Q8H PRN simvastatin 10 mg tablet 10 mg PO HS phenytoin sodium extended 100 mg capsule 200 mg PO BID amlodipine 10 mg tablet 10 mg PO QDAY esomeprazole magnesium 40 mg capsule,delayed release(DR/EC) 40 mg PO QDAY lisinopril 40 mg tablet 40 mg PO QDAY pregabalin 150 mg capsule 150 mg PO BID trazodone 50 mg tablet 50 mg PO QPM PRN levalbuterol HCl 1.25 mg/3 mL solution for nebulization 1.25 mg INHALATION TID Patient Comments: USE 1 VIAL IN NEBULIZER THREE TIMES DAILY FOR WHEEZING AND FOR SHORTNESS OF BREATH FOR 30 DAYS albuterol sulfate 90 mcg/actuation HFA aerosol inhaler 2 puff INHALATION Q6H PRN (Reason: wheezing) Trelegy Ellipta 100-62.5-25 mcg blister with device 1 ea INHALATION QDAY amlodipine 5 mg Tablet 5 mg PO DAILY ketorolac 10 mg tablet 10 mg PO Q8H PRN (Reason: pain) Qty: 15 0RF Rx Instructions: maximum total duration of 5 days from all oral, intranasal, or parenteral formulations Follow ups/Referrals Follow ups/Referrals: Fady Martini [Primary Care Provider] - 12/07/23 1:00 pm Instructions Instructions: Steps to Quit Smoking, [id number], Health Risks of Smoking, Smoking Tobacco Information, Adult, Endovascular Therapy for Peripheral Vascular Disease, Care After Stand Alone Forms: Excuse From Work or School, Post Hospital Follow Up Care
--- NOTE | 2023-11-26 22:48 | DR.OPNOTE ---
OP NOTE Pre-Op Diagnosis: critical ischemia left leg Post-Op Diagnosis: same Procedure Date Date Of Procedure: 11/24/23 Procedure: PROCEDURE: Diagnostic aortogram , diagnostic arteriogram left lower extremity ,atherectomy and drug eluting stenting of the entire left superficial femoral artery , IVUS both iliac arteries NARRATIVE: The patient was taken to the operative suite and placed in the supine position. The right groin and entire left leg were prepped and draped in sterile fashion. The patient was given intravenous sedation supervised by myself. Time out for the procedure obtained . Ultrasound used to identify the right femoral artery and the skin overlying it infiltrated with 0.5% Marcaine. Ultrasound used to guide puncture of the right femoral artery and a 0.012 inch guide wire placed. Incision made over the guide wire at the skin edge with a # 11 knife blade and a micro sheath placed over the guide wire into the right femoral artery. The small wire exchanged for a 0.035 inch Advantage glide wire and the micro sheath exchanged for a 5- fr vascular sheath . Omni catheter was placed over the guide wire into the aorta and power injector used to reform diagnostic aortogram showing small but normal aorta and question of b/l iliac artery stenosis. Patient given 5000 units of IV heparin . The Omni catheter used to steer the guide wire down the left common iliac artery down to the left external iliac artery and the Omni catheter exchanged for a [place] catheter. Using the [place] catheter and the guidewire ,sequential arteriograms performed of the right leg showing complete occlusion of the left superficial femoral ar moose at it's takeoff with reconstitution of the popliteal artery . The five Italian sheath in the right groin exchanged for a 7 Fr Catapult destination sheath which was parked in the left femoral artery .Since a wire would not pass the occlusion from above we elected to perform a retrograde approach as well. Ultrasound used to identify the left posterior tibial artery , and the skin overlying it infiltrated with 0.5% Marcaine . Ultrasound use to guide puncture of the left posterior tibial artety artery and a 0.012 inch guide wire placed. A slim sheath placed over the guide wire into the left posterior tibial artery and arteriogram carried out to confirm that we were indeed in the artery . From below a guide wire and [place] catheter were used to traverse the obstruction all the way to the left external iliac artery . The guide wire was threaded through the 7 Fr destination sheath and out the opening of it in the right groin. [place] catheter placed from above over the 0.035 in wire down to the left popliteal artery.This was selective catheterization .The 0.035 inch Advantage glide wire exchanged through the [place] catheter for 0.014 inch wire. Over the 0.014 inch wire from the right groin we placed the Jet stream atherectomy device and performed atherectomy of the entire left superficial femoral artery . Once this was complete the Jet stream device was removed and over the wire we placed a Juan M 4mmx 220 mm balloon and pre-dilated the left superficial femoral artery . Torri stents 6mmx 150 mm and Torri stent 7mmx 150 mm and Torri 7 mmx 60 mm placed along the length of the left superficial femoral artery and they were all dilated with a 6mmx 220 mm balloon. Post-procedure arteriogram showed excellent results. IVUS performed of both iliac artereies showing no significant stenosis. Wires and devices removed from the destination sheath. The destination sheath pulled back and 0.035 inch wire placed . The destination sheath exchanged for an Angioseal device used to close the puncture of the left femoral artery . Sheath in the left posterior tibial artery removed and bleeding controlled with a tibial band. Hemostatic dressing placed over the right groin puncture site and the patient taken the flooe in good condition. Type of Anesthesia: Local (0.5% Marcaine ) Anesthesia Comment: plus MAC Findings: complete occlusion of entire left superficial femoral artery , question of b/l iliac artery stenosis disproven by IVUS both iliac arteries Type of Fluids Used:: Lactated Ringers Total Amount of Fluid Infused:: 650cc Urine output: 250 cc EBL: 150 cc Hardware: Torri stents 6x 150 mm, 7x 150 mm and 7x 60 mm Complications:: none Needle/Sponge Count:: correct Disposition/Condition: Pt. tolerated procedure without difficulty. Taken to floor in stable condition.
--- NOTE | 2023-11-26 23:19 | DR.OPNOTE ---
OP NOTE Pre-Op Diagnosis: Bilateral iliac vein compression Post-Op Diagnosis: same Procedure Date Date Of Procedure: 11/24/23 Procedure: PROCEDURE: BILATERAL ILIAC VENOGRAMS, BILATERAL ILIAC VEIN INTRAVASCULAR ULTRASOUND, STENTING RIGHT COMMON ILIAC VEIN, STENTING PROXIMAL RIGHT COMMON FEMORAL VEIN NARRATIVE : The patient was taken to the operative suite and placed in the supine position. Both groins were prepped and draped in sterile fashion. The patient was administered intravenous sedation supervised by myself. Time out for the procedure obtained. Ultrasound used to identify the left greater saphenous vein and the skin overlying it infiltrated with 0.5% Marcaine . Ultrasound then use to guide puncture of the left greater saphenous vein and a 0.012 inch guide wire placed . Incision made over this guide wire at the skin edge with a # 11 knife blade and a micro sheath placed over the guide wire into the left greater saphenous vein and into the left femoral vein. The small guide wire exchanged for a 0.035 inch Advantage glide wire and the micro sheath exchanged for a 10 Fr vascular sheath. The right greater saphenous vein was identified using ultrasound and the skin overlying it infiltrated with 0.5% Marcaine Ultrasound used to guide puncture of the right greater saphenous vein and a 0.012 inch guide wire placed. Incision made over this guidewire at the skin edge with a # 11knife blade and a micro sheath placed over the guide wire into the right greater saphenous vein and into the right femoral vein. The small guide wire was exchanged for a 0.035 inch Advantage glide wire and the micro sheath exchanged for a 10 Fr vascular sheath . The patient was given 5000 units of intravenous heparin. Bilateral iliac venograms carried out showing bilateral iliac vein compression. Bilateral iliac vein intravascular ultrasound carried out over the wire on each side showing 52% compression of the right common ilaic vein, 42 % compression of the rigjht proximal common femoral vein and 41 % compression of the left common femoral vein . The right side was selected as it is the most symptomatic side. Over the wire we placed a Venous Wall stent measuring 18x 90 mm and positioned it over the area of compression in the right common iliac vein . A second stent measuring 16x 60 mm placed distal to the first stent with 3 mm overlap. Both stents balloon dilated with a 16 mm esophageal balloon inflating it to 5 mm of Hg and removing it. Post-procedure intravascular ultrasound showed excellent result. Wires and sheaths in both groins removed and direct pressure held over each groin puncture site for 10 minutes. The patient was given 30 mg of intravenous Protamine. Hemostatic dressing applied to each puncture site and the patient taken to same day surgery in good condition. Type of Anesthesia: Local (0.5% Marcaine) Anesthesia Comment: plus MAC Findings: 52 % compression right common iliac vein, 42 % compression right proximal common femoral vein, 41 % compression left common iliac vein Disposition/Condition: Pt. tolerated procedure without difficulty. Extubated in the OR and taken to PACU in stable condition.
== END 2023-11-25 18:24 | disposition home or self-care (01) | DRG 272 ==
LOC: INTOOBSV 14:28 → MED/SURG 14:28
PROVIDERS: ADMIT Surgery; ATTEND Surgery